=== PATIENT | female | born 1995 | race Hispanic/Latino ===

== ENCOUNTER 2018-04-16 18:21 | Emergency (ER) | payer SELFPAY ==
[~2018-04-16 18:21] MED LIST: ISOVUE-370 76%-LOCM 1 ML ONE
[2018-04-16] MEDS ORDERED: Haloperidol Lactate 5 MG/ML VIAL ONE (19:00)
[2018-04-16 19:02] LABS: BHCG - Serum Negative (NEGATIVE); Pregs Control Background? CLEAR/WHITE (CLR/WHITE); Pregs Control Bar Appear? YES (CONTROL BAR)
[2018-04-16 19:04] LABS: Hemoglobin 15.8 g/dL (12.0-16.0); Mean Corpuscular HGB CONC 34.5 g/dL (32.0-36.0); Mean Corpuscular Hemoglobin 30.1 pg (27.0-31.0); Mean Corpuscular Volume 87.1 fL (78.0-98.0); Mean Platelet Volume 6.6 fL (7.4-10.4); Platelet Count 354 thou/uL (130-400); RBC Distribution Width 14.2 % (11.5-14.5); Red Blood Cell (RBC) Count 5.25 mill/uL (4.20-5.40); White Blood Cell (WBC) Count 20.8 thou/uL (4.8-10.8)
[2018-04-16 19:09] LABS: #Basophils 0.1 thou/uL (0.0-0.2); #Eosinphils 0.1 thou/uL (0.0-0.7); #Lymphocytes 1.4 thou/uL (1.20-3.40); #Monocytes 0.9 thou/uL (0.11-0.59); #Neutrophils 16.7 thou/uL (1.40-6.50); %Basophils 0.4 % (0.0-1.0); %Eosinophils 0.4 % (0.0-10.0); %Lymphocytes 7.4 % (21.0-51.0); %Monocytes 4.8 % (0.0-10.0); %Neutrophils 87.1 % (42.0-75.0)
[2018-04-16 19:13] LABS: ALT (SGPT) 22 U/L (8-55); AST (SGOT) 19 U/L (5-34); Albumin 4.7 g/dL (3.5-5.0); Alkaline Phosphatase 78 U/L (40-150); Anion Gap 16 mmol/L (10-20); BUN (Urea Nitrogen) 10 mg/dL (7.0-18.7); Bilirubin, Total 0.5 mg/dL (0.2-1.2); Calc. Creatinine Clearance 0 mL/min (70-130); Calcium 9.5 mg/dL (7.8-10.44); Carbon Dioxide 24 mmol/L (22-29); Chloride 104 mmol/L (98-107); Estimated GFR-MDRD 89; Globulin 3.2 g/dL (2.4-3.5); Glucose 104 mg/dL (70-105); Lipase 30 U/L (8-78); Potassium 3.7 mmol/L (3.5-5.1); Protein, Total 7.9 g/dL (6.0-8.3); Sodium 140 mmol/L (136-145)
--- NOTE | 2018-04-16 20:13 | CT ---
CT ABDOMEN AND PELVIS WITH IV CONTRAST 04/16/18 HISTORY: Abdominal pain with vomiting and elevated white blood cell count. COMPARISON: None available. FINDINGS: Calcified granulomata are seen in the liver and spleen. The lung bases, pancreas, bilateral adrenal glands, kidneys, abdominal aorta, urinary bladder, uterus , and left adnexal structures demonstrate a normal CT appearance. There is a complex cystic structure in the right adnexal region, portions of this complex cystic appe aring structure appear tubular in origin. Findings could be related to hydrosalpinx or in the correct clinical scenario, tubo-ovarian abscess is the differential consideration. A complex cystic lesion i s also a possibility. Pelvic ultrasound may be helpful for further evaluation. No free fluid or lymphadenopathy is seen in the abdomen or pelvis. Small bowel loops are normal in caliber. The appendix is visualized and normal in caliber. IMPRESSION: Complex cystic right pelvic structure which could represent a complex ovarian cystic lesion, but port ions of this cystic structure have a more tubular appearance and findings could be related to hydrosa lpinx or possibly tubo-ovarian abscess in the correct clinical scenario; although adjacent stranding or fluid is seen. Pelvic ultrasound may be helpful for further evaluation. POS: [facility]
== END 2018-04-16 20:23 ==
LOC: ERS 18:21
DX: F12.288 Cannabis dependence with other cannabis-induced disorder (principal); J45.909 Unspecified asthma, uncomplicated; Z79.899 Other long term (current) drug therapy
CPT/HCPCS: 74177; 80053; 83690; 84703; 85025; 96361; 96374; J1630

== ENCOUNTER 2018-08-19 03:59 | Emergency (ER) | payer SELFPAY ==
[2018-08-19] MEDS ORDERED: predniSONE 20 MG TAB ONE (04:43)
--- NOTE | 2018-08-19 08:37 | RAD ---
CHEST 1 VIEW: HISTORY: Cough, chest tightness. COMPARISON: None. FINDINGS: Lungs are clear. No pneumothorax or effusion. Cardiac silhouette and mediastinal contours are withi n normal limits. IMPRESSION: No acute intrathoracic abnormality. POS: [facility]
== END 2018-08-19 05:55 | disposition home or self-care (01) ==
LOC: ERS 03:59
DX: J45.901 Unspecified asthma with (acute) exacerbation (principal); F41.9 Anxiety disorder, unspecified; Z79.51 Long term (current) use of inhaled steroids
CPT/HCPCS: 71045; 94640; J7506; J7620

== ENCOUNTER 2019-02-28 07:40 | Emergency (ER) | payer SELFPAY ==
[2019-02-28 08:16] LABS: #Basophils 0.1 thou/uL (0.0-0.2); #Eosinphils 0.3 thou/uL (0.0-0.7); #Lymphocytes 1.8 thou/uL (1.20-3.40); #Monocytes 0.8 thou/uL (0.11-0.59); #Neutrophils 5.1 thou/uL (1.40-6.50); %Basophils 0.7 % (0.0-1.0); %Eosinophils 4.3 % (0.0-10.0); %Lymphocytes 22.1 % (21.0-51.0); %Monocytes 9.5 % (0.0-10.0); %Neutrophils 63.3 % (42.0-75.0); Hemoglobin 13.2 g/dL (12.0-16.0); Mean Corpuscular HGB CONC 31.6 g/dL (32.0-36.0); Mean Corpuscular Hemoglobin 27.7 pg (27.0-31.0); Mean Corpuscular Volume 87.6 fL (78.0-98.0); Mean Platelet Volume 6.9 fL (7.4-10.4); Platelet Count 287 thou/uL (130-400); RBC Distribution Width 13.9 % (11.5-14.5); Red Blood Cell (RBC) Count 4.76 mill/uL (4.20-5.40); White Blood Cell (WBC) Count 8.1 thou/uL (4.8-10.8)
[2019-02-28 08:38] LABS: ALT (SGPT) 13 U/L (8-55); AST (SGOT) 13 U/L (5-34); Albumin 4.1 g/dL (3.5-5.0); Alkaline Phosphatase 83 U/L (40-150); Anion Gap 11 mmol/L (10-20); BUN (Urea Nitrogen) 11 mg/dL (7.0-18.7); Bilirubin, Total 0.4 mg/dL (0.2-1.2); Calc. Creatinine Clearance 0 mL/min (70-130); Calcium 9.1 mg/dL (7.8-10.44); Carbon Dioxide 26 mmol/L (22-29); Chloride 105 mmol/L (98-107); Estimated GFR-MDRD Greater than 90; Globulin 2.8 g/dL (2.4-3.5); Glucose 99 mg/dL (70-105); Potassium 3.9 mmol/L (3.5-5.1); Protein, Total 6.9 g/dL (6.0-8.3); Sodium 138 mmol/L (136-145)
[2019-02-28 09:12] LABS: Bilirubin Negative (Negative); Blood, Urine 1+ (Negative); Clarity Clear (Clear); Glucose, Urine (Dipstick) Normal (Negative); Leukocyte 25 Leu/uL (Negative); Nitrite Negative (Negative); Protein, Urine (Dipstick) Negative (Neg-Trace); Urobilinogen Normal mg/dL (Less than 2)
[2019-02-28 09:13] LABS: WBC/HPF 0-3 HPF (0-3)
[2019-02-28 09:14] LABS: Pregnancy Test - Urine (BHCG) Negative (Negative); Pregu Control Background? CLEAR/WHITE (CLR/WHITE); Pregu Control Bar Appear? YES (CONTROL BAR)
[2019-02-28] MEDS ORDERED: Ondansetron ODT 4 MG TAB ONE (09:34)
== END 2019-02-28 09:44 | disposition home or self-care (01) ==
LOC: ERS 07:40
DX: R11.2 Nausea with vomiting, unspecified (principal); R19.7 Diarrhea, unspecified; F41.9 Anxiety disorder, unspecified
CPT/HCPCS: 36415; 80053; 81003; 81015; 81025; 85025; 87086; 99284; Q0162

== ENCOUNTER 2020-07-09 20:19 | Emergency (ER) | payer SELFPAY | END 2020-07-09 21:25 | disposition home or self-care (01) | LOC: ERS 20:19 | DX: J45.909 Unspecified asthma, uncomplicated (principal); F41.9 Anxiety disorder, unspecified | CPT/HCPCS: 99284 ==

== ENCOUNTER 2022-09-07 18:44 | Emergency (ER) | payer SELFPAY ==
[2022-09-07] MEDS ORDERED: Albuterol 200 PUFF (6.7GM INHALER) ONE (18:52)
[2022-09-07] MEDS ORDERED: predniSONE 20 MG TAB ONE (19:00)
== END 2022-09-07 19:52 | disposition home or self-care (01) ==
LOC: ERS 18:44
DX: J45.901 Unspecified asthma with (acute) exacerbation (principal); J06.9 Acute upper respiratory infection, unspecified
CPT/HCPCS: 99284; J7512

== ENCOUNTER 2023-04-27 10:59 | Emergency (ER) | payer SELFPAY ==
[2023-04-27] MEDS ORDERED: predniSONE 20 MG TAB ONE (11:12)
[2023-04-27] MEDS ORDERED: Ipratropium/Albuterol 3 ML NEB ONE (11:14)
== END 2023-04-27 12:12 | disposition home or self-care (01) ==
LOC: ERS 10:59
DX: J45.901 Unspecified asthma with (acute) exacerbation (principal)
CPT/HCPCS: 94640; J7512; J7620